=== PATIENT | female | born 1995 | race Two or more races ===

== ENCOUNTER 2020-09-13 15:13 | Outpatient (CLI) | payer MEDICAID ==
[2020-09-13 15:36] LABS: BASOPHILS % (AUTO) 0.3 %; EOSINOPHILS # (AUTO) 0.1 10^3/uL (0.0-0.7); EOSINOPHILS % (AUTO) 0.4 %; HCT - HEMATOCRIT 34.6 % (37.0-47.0); HGB - HEMOGLOBIN 11.8 g/dL (12.0-16.0); LYMPHOCYTES # (AUTO) 1.6 10^3/uL (1.5-3.5); LYMPHOCYTES % (AUTO) 13.2 %; MEAN CORPUSCULAR HEMOGLOBIN 32.5 pg (27.0-31.0); MEAN CORPUSCULAR HGB CONC 34.1 g/dL (32.0-36.0); MEAN CORPUSCULAR VOLUME 95.3 fL (81.0-99.0); MONOCYTES # (AUTO) 0.4 10^3/uL (0.0-1.0); MONOCYTES % (AUTO) 2.9 %; NEUTROPHILS # (AUTO) 9.9 10^3/uL (1.5-6.6); NEUTROPHILS % (AUTO) 82.7 %; PLT - PLATELET COUNT 251 10^3/uL (130-450); RED BLOOD COUNT 3.63 10^6/uL (4.20-5.40); RED CELL DISTRIBUTION WIDTH 12.2 % (12.0-15.0)
[2020-09-14 12:46] LABS: HEPATITIS B SURFACE ANTIGEN NON-REACTIVE (NON-REACTIVE)
[2020-09-14 13:01] LABS: HEPATITIS C ANTIBODY NON-REACTIVE (NON-REACTIVE)
[2020-09-14 14:00] LABS: HIV AG/AB 4TH GEN NON-REACTIVE (NON-REACTIVE)
== END 2020-09-13 15:14 | disposition home or self-care (01) ==
LOC: LAB 15:13
PROVIDERS: ATTEND Advanced Practice Midwife
DX: Z36.89 Encounter for other specified antenatal screening (principal)
CPT/HCPCS: 36415; 85025; 86592; 86762; 86787; 86803; 86850; 86900; 86901; 87340; 87389

== ENCOUNTER 2020-09-14 16:09 | Outpatient (CLI) | payer MEDICAID ==
--- NOTE | 2020-09-15 10:33 | Ultrasound Report ---
PROCEDURE: OB First Trimester INDICATIONS: Supervision of PROCEDURE: OB First Trimester INDICATIONS: Supervision of OUTSIDE/PRIOR DATING DATA: Last menstrual period (LMP): 06/06/2020. LMP-based estimated date of delivery (ALEXANDRO): 03/13/2021. First dating scan (date and location): 09/14/2020. Estimated date of delivery (ALEXANDRO) from first dating scan: 03/06/2021. The below data below was generated using the ultrasound ALEXANDRO of 03/06/2021 TECHNIQUE: Real-time scanning was performed of the fetus, with image documentation and biometric measurements. Endovaginal scanning: Performed COMPARISON: None. FINDINGS: General: A single living intrauterine gestation is present. Presentation: Vertex Placenta: Placental position is anterior, without previa. Amniotic fluid index: Subjectively normal. heart rate: 157 beats per minute. Maternal cervical canal: Closed and 3.5 cm long; normal length is 2.5 cm or more. biometrics: Biparietal diameter: 15 weeks 4 days Head circumference: 15 weeks 2 days Abdominal circumference: 15 weeks 4 days Femur length: 15 weeks 2 days Estimated gestational age from initial scan: not applicable. Composite gestational age from present scan: 15 weeks 4 days Measurement variability for biometric dating: +/- 10 days from 12-20 weeks gestation, +/- 2 weeks fro m 20-30 weeks gestation, +/- 3 weeks for 30 weeks gestation or later. IMPRESSION: Single living intrauterine with ultrasound estimated gestational age of 15 weeks 4 days cor responding to ultrasound ALEXANDRO of 03/06/2021. Reviewed by: Vannessa Zuniga MD, PhD on 09/15/2020 10:32 AM PDT Approved by: Vannessa Zuniga MD, PhD on 09/15/2020 10:32 AM PDT Station ID: [id number]
== END 2020-09-14 16:10 | disposition home or self-care (01) ==
LOC: DI 16:09
PROVIDERS: ATTEND Advanced Practice Midwife
DX: Z34.00 Encounter for supervision of normal first pregnancy, unspecified trimester (principal)